=== PATIENT | female | born 1950 | race Caucasian/White ===

== ENCOUNTER 2018-01-01 06:43 | Inpatient (IN) | payer OTHER, MEDICARE ==
[~2018-01-01] VITALS: Ht 157.5 cm; Wt 64.0 kg
[2018-01-01] MEDS ORDERED: BUPIVACAINE/EPINEPHRINE 0.25% 50 ML VIAL ONE (06:59)
[2018-01-01] MEDS ORDERED: GENTAMICIN SULFATE 80 MG/2 ML VIAL ONE (07:00)
[2018-01-01] MEDS ORDERED: BUPIVACAINE LIPOSOME PF 1.3% 20 ML VIAL ONE (07:42)
[2018-01-01] MEDS ORDERED: MIDAZOLAM HCL 2 MG/2 ML VIAL ONE (07:42)
[2018-01-01] MEDS ORDERED: LISI-515 PO (07:48)
[2018-01-01] MEDS ORDERED: LORA1TAB12 PO (07:51)
[2018-01-01] MEDS ORDERED: CYCL5TAB PO (07:51)
[2018-01-01] MEDS ORDERED: VANCOMYCIN HCL 1000 MG VIAL ONE (07:53)
[2018-01-01] MEDS ORDERED: SODIUM CHLOR 0.9% 250 ML INJ 250 ML ONE (07:54)
[2018-01-01] MEDS ORDERED: ceFAZolin 2 GM PREMIX 50 ML IV SCH (08:00)
[2018-01-01] MEDS ORDERED: VANCOMYCIN 1000 MG/NS 250 ML (for <70 kg) IV SCH ×2 (08:00)
[2018-01-01] MEDS ORDERED: SODIUM CHLORIDE 0.9% IV SCH (08:00)
[2018-01-01] MEDS ORDERED: TRANEXAMIC ACID IV SCH (08:00)
[2018-01-01] MEDS ORDERED: CHLORHEXIDINE GLUCONATE 4% SOLN 120 ML BTL TOPICAL SCH (08:00)
[2018-01-01] MEDS ORDERED: EXPAREL PERI-ARTICULAR INJECTION (TOTAL VOL. 60 ML) P-ARTICULR SCH ×2 (08:00)
[2018-01-01] MEDS ORDERED: CHLORHEXIDINE GLUCONATE 2 % 1 PACK (2 CLOTHS) TOPICAL PRN (08:30)
[2018-01-01] MEDS ORDERED: SODIUM CHLORID 0.9% 500 ML IV PRN (08:30)
[2018-01-01] MEDS ORDERED: INSULIN HUMAN REGULAR 1,000 UNITS/10 ML VIAL SQ PRN (08:30)
[2018-01-01] MEDS ORDERED: LACTATED RINGER'S 1000 ML IV PRN (08:30)
[2018-01-01] MEDS ORDERED: POVIDONE IODINE 5% (ANTISEPSIS KIT) 4 APPLICATIONS EACH NARE PRN (08:30)
[2018-01-01] MEDS ORDERED: METOPROLOL TARTRATE 25 MG TAB PO PRN (08:30)
[2018-01-01] MEDS ORDERED: ACETAMINOPHEN 1000 MG/100 ML 100 ML IV ONE (08:32)
[2018-01-01 08:34] VITALS: PULSE 71
[2018-01-01] MEDS ORDERED: ceFAZolin INJ 1,000 MG VIAL ONE (08:59)
[2018-01-01] MEDS ORDERED: SODIUM CHLORIDE 0.9% INJ 100 ML ONE (10:33)
[2018-01-01] MEDS ORDERED: CPMMACHINE (10:50)
[2018-01-01] MEDS ORDERED: WALKER WHEELS/F1 MIS (10:51)
[2018-01-01] MEDS ORDERED: COMMODE 3-IN-11 MIS (10:52)
--- NOTE | 2018-01-01 10:54 | HHI.FF ---
Face to Face Verification Diagnosis: (1) Osteoarthritis of left knee Physical Therapy Gait training, Safety evaluation, Transfer training, bed to chair Knee: Total knee, Protocol: Left, Full weight bearing Canvas Knee Splint: When in bed & 2 pillows btw thighs Left LE Weight Bearing: WB as tolerated Additional Instructions PT 3-4 days/wk for 2 weeks. WBAT Left LE. TKA protocol. CPM bid as tolerated , 0-60 with goal of 100 flexion. CKS when in bed for 3-4 weeks. Gait training. Nursing RN Days per Week: 2 x Week(s): 1 Nursing: Other Dressing Changes: Do not change dressing Additional Instructions Vitals assessment. Dressing assessment - do not change unless saturated or erythema. I have seen patient Ghazal Rosales on 01/01/18. My clinical findings support the need for the requested home health care services because: Limited ability to care for self High risk of falls I certify that my clinical findings support that this patient is homebound because: Post-op weakness Unsteady gait/balance Denise Pitts Jan 01, 2018 10:54
--- NOTE | 2018-01-01 10:57 | HHI.DS ---
Discharge Summary Admission Date Jan 01, 2018 at 06:43 Discharge Date: Jan 03, 2018 Admitting Diagnosis see below Diagnosis: (1) Osteoarthritis of left knee Diagnosis: Principal ICD Codes: M17.12 - Unilateral primary osteoarthritis, left knee Procedures Left total knee arthroplasty Brief History This is a 67 year old female patient with an extended multi-year history of left knee pain. She underwent arthroscopic surgery in 1983 and again in 1989. She did well for a period of time but began having increased pain with weightbearing. She used OTC tylenol. She sought out medical evaluation. Xrays were performed showing advancing arthritis of her left knee. She was given a prescription of celebrex of which she took for many years but had to discontinue due to GI side effects. She utilized an OTC knee brace. Surgical treatment was eventually recommended when her function continued to decline. She agreed to left total knee arthroplasty and now presents for the above. Hospital Course Surgical treatment was performed on the day of admission without complication. She recovered well in PACU and was transferred to the orthopaedic floor. Pain was controlled with IV and oral medications. DVT prophylaxis was initiated pod# 1 with ASA 81mg. She was compliant with physical therapy and all restrictions including use of her CPM. After 2 days she was found to be stable and discharged home with home health care. She was educated to continue applying ice to the operative site, to pursue a high fiber diet and to continue her physical therapy. She was given prescriptions of ASA 81mg and Percocet 5mg. Pt Condition on Discharge: Stable Discharge Disposition: Disch w/ Home Health Serv Discharge Instructions Diet Instructions: High Protein Diet Activities You Can Perform: Weight Bearing as Aly Activities to Avoid: Strenuous Activity Additional Activity Instruc.: TKA protocol New Medications: Commode 3-in-1 (Commode 3-in-1) 1 Mis Mis EA .XX DIRECTED, #1 0 Refills CPM-Continuous Passive Motion Machine (CPM-Continuous Passive Motion Machine) 1 Ea Device EA .XX DIRECTED, #1 0 Refills Walker with Front Wheels (Walker with Front Wheels) 1 Mis Mis EA .XX DIRECTED, #[address] (Aspirin DR) 81 Mg Tabdr 81 MG PO BID for Prevent Blood Clot, #60 TAB Oxycodone HCl/Acetaminophen (Oxycodone-Acetaminophen 5-325) 5 Mg-325 Mg Tablet 1 TAB PO Q4H PRN for pain, #42 TAB Continued Medications: Cyclobenzaprine (Flexeril) 5 Mg Tab 5 MG PO TID for Muscle Spasm, #90 TAB 0 Refills Lisinopril (Lisinopril) 20 Mg Tab 20 MG PO BID, #30 TAB 0 Refills Lorazepam (Lorazepam) 1 Mg Tab 1 MG PO DAILY PRN for ANXIETY, TAB 0 Refills Denise Pitts Jan 01, 2018 10:57
[2018-01-01] MEDS ORDERED: Post-op Orders (for Pharmacy) XX ONE (11:15)
[2018-01-01] MEDS ORDERED: oxyCODONE/ACETAMINOPHEN 5 MG/325 MG TAB PO PRN (11:15)
[2018-01-01] MEDS ORDERED: MORPHINE SULFATE 8 MG/ML INJ IM PRN (11:15)
[2018-01-01] MEDS ORDERED: NALOXONE HCL 0.4 MG/ML AMP IV PUSH PRN (11:15)
[2018-01-01] MEDS ORDERED: ASPIRIN EC 81 MG TABEC PO ONE (11:15)
[2018-01-01] MEDS ORDERED: TEMAZEPAM 15 MG CAP PO PRN (11:15)
[2018-01-01] MEDS ORDERED: LORazepam 1 MG TAB PO PRN (11:15)
--- NOTE | 2018-01-01 11:20 | PD.OP ---
cc: Mikhail Hart MD Operative Report Date of Surgery: Jan 01, 2018 Preoperative Diagnosis: Osteoarthritis left knee Postoperative Diagnosis: Same Procedure: Left total knee replacement arthroplasty Anesthesia: Gen. Surgeon: Mikhail Hart Computer Technology Instructor(s): MELA Ann Operation and Findings: EBL: 50 cc INDICATION: This patient presents with long-standing arthritis of the knee. Attachment record documents conservative measures. The patient now presents for surgical treatment. NOTE: Sharda Ann PA-C was present for the entire surgical procedure as my multimedia production assistant. In my medical opinion her skill and care was necessary for proper management of this patient. TOURNIQUET TIME: T8 minutes COMPANY: [employer] FEMUR: Size 5, posterior stabilized TIBIA: Size, fixed bearing PATELLA: 129 mm POLYETHYLENE INSERT: 10 mm PROCEDURE: This patient was brought the operating room and anesthetized in the supine position. The patient was positioned supine on the table. The tourniquet was placed about the thigh, and the leg was scrubbed with alcohol followed by Hibiclens followed by ChloraPrep and draped sterilely. A timeout was done, and antibiotics were given. After exsanguination the tourniquet was inflated to 250 mmHg. An anterior incision was made and a median parapatellar arthrotomy was performed. The patella was released laterally and subluxed allowing freehand cut of the patella which was then sized. A metal cap was placed over the exposed patellar surface for protection. A navy fighter pilot hole was placed in the distal femur allowing a 4 valgus cut removing 10 mm from the distal femur. We used 2 of external rotation of the femoral component based on epicondylar axis. Anterior posterior and chamfer cuts were made. The posterior stabilize osteotomy was made. The attention was directed to the tibia. Retractors were positioned. The external alignment guide was used allowing the lateral tibia to be used as referencing guide and cut utilizing an oscillating saw taking care to avoid any injury to the surrounding soft tissues. This was sized properly. Trial reduction showed that the insert fit nicely. The patient had range of motion extension 0 flexion a 130. A medial release was not necessary. The bony surfaces prepared. On the back table 2 packets of methylmethacrylate were mixed. The components were cemented. Excess cement was removed. The tourniquet let down and hemostasis was controlled. The final plastic insert was inserted. Range of motion was the same as previously noted. A drain was brought through a separate stab incision. The arthrotomy was repaired with interrupted #1 Vicryl suture, subcutaneous tissue 2-0 Vicryl suture and skin with metallic oh A sterile dressing was applied. Sponge counts, needle counts and instrument counts were all correct. The patient tolerated procedure well and was taken to recovery in satisfactory condition. FINDINGS: There was severe osteoarthritis of the knee with a varus deformity. Final fit was excellent. Along the medial femoral condyle in the region of the box cut, there was a slight crack in that region that could be seen which was not unstable. Solution was excellent. There was no complication. Mikhail Hart MD Jan 01, 2018 11:20
[2018-01-01] MEDS ORDERED: OXYC1TAB63 PO (11:22)
[2018-01-01] MEDS ORDERED: ECASA81 PO (11:22)
[2018-01-01] MEDS ORDERED: DO NOT ADM ANY ANTICOAGULANT DRUGS PRN (11:42)
[2018-01-01] MEDS ORDERED: *MEPERIDINE 25 MG INJ VIAL PERIprocedural Use ONLY ONE (11:51)
[2018-01-01] MEDS ORDERED: PROPOFOL 200 MG/20 ML AMP IV ONE (12:00)
[2018-01-01] MEDS ORDERED: PHENYLEPH/NS 1000 MCG/10 ML SYR IV ONE (12:00)
[2018-01-01] MEDS ORDERED: LIDOCAINE HCL 1% PF 5 ML SYRINGE OTHER ONE (12:00)
[2018-01-01] MEDS ORDERED: GLYCOPYRROLATE 1 MG/5 ML SYRINGE IV PUSH ONE (12:00)
[2018-01-01] MEDS ORDERED: NEOSTIGMINE 5 MG/5 ML SYRINGE IV PUSH ONE (12:00)
[2018-01-01] MEDS ORDERED: ROCURONIUM INJ 50 MG/5 ML SYRINGE IV PUSH ONE (12:00)
[2018-01-01] MEDS ORDERED: DEXAMETHASONE SOD PHOS 4 MG/ML VIAL IV ONE (12:00)
[2018-01-01] MEDS ORDERED: PILL SPLITTER OTHER PRN (12:00)
[2018-01-01] MEDS ORDERED: ePHEDrine/NS 25 MG/5 ML SYRINGE IV ONE (12:00)
[2018-01-01] MEDS ORDERED: ONDANSETRON HCL 4 MG/2 ML VIAL IV ONE (12:00)
[2018-01-01] MEDS: LACTATED RINGER'S 1000 ML INJ 1,000 ML IV SCH ×2 (12:10→22:00)
--- NOTE | 2018-01-01 12:45 | RADRPT ---
EXAM DATE/TIME: 01/01/2018 12:02 [facility] COMPARISON: No previous studies available for comparison. INDICATIONS : Post op left knee replacement MEDICAL HISTORY : None. SURGICAL HISTORY : left knee replaced ENCOUNTER: Initial ACUITY: 1 day PAIN SCORE: 10/10 LOCATION: Left knee FINDINGS: There is total knee prosthesis in place. The components appear well-placed. Skin oh are seen ant eriorly. Air is seen within the soft tissues and within the knee joint. This is not an unexpected fin ding following surgery. CONCLUSION: Successful placement of a left total knee prosthesis. Deshawn Miranda MD on January 01, 2018 at 12:42 Board Certified Radiologist. This report was verified electronically.
[2018-01-01] MEDS: CYCLOBENZAPRINE HCL 10 MG TAB PO SCH ×2 (13:00→18:07)
[2018-01-01] MEDS ORDERED: *morphine SULFATE 4 MG/ML PERIprocedure ONLY ONE (13:10)
[2018-01-01 14:00] VITALS: BP 122/57; PULSE 72; RESP 18; TEMP 96.8; O2SAT 99
[2018-01-01 16:00] VITALS: BP 92/54; PULSE 87; RESP 18; TEMP 99; O2SAT 95
[2018-01-01] MEDS: oxyCODONE/ACETAMINOPHEN 5 MG/325 MG TAB PO PRN (18:07)
[2018-01-01 20:00] VITALS: BP 118/54; PULSE 76; RESP 17; TEMP 97.4; O2SAT 99
[2018-01-01] MEDS: ASPIRIN EC 81 MG TABEC PO SCH (20:13)
[2018-01-01] MEDS: LISINOPRIL 20 MG TAB PO SCH (20:13)
[2018-01-01 23:30] VITALS: BP 116/57; PULSE 77; RESP 18; TEMP 98.4; O2SAT 96
[2018-01-02] MEDS: oxyCODONE/ACETAMINOPHEN 5 MG/325 MG TAB PO PRN ×5 (00:10→18:35)
[2018-01-02 04:00] VITALS: BP 124/62; PULSE 67; RESP 18; TEMP 97.6; O2SAT 97
[2018-01-02 06:56] LABS: HEMATOCRIT 35.4 % (35.0-46.0); HEMOGLOBIN 11.7 GM/DL (11.6-15.3)
[2018-01-02 07:38] VITALS: BP 103/60; PULSE 79; RESP 18; TEMP 99; O2SAT 97
[2018-01-02] MEDS: CYCLOBENZAPRINE HCL 10 MG TAB PO SCH ×3 (08:37→18:13)
[2018-01-02] MEDS: NICOTINE 7 MG/24 HR PATCH T-DERMAL SCH (08:37)
[2018-01-02] MEDS: LISINOPRIL 20 MG TAB PO SCH ×2 (08:39→21:32)
[2018-01-02] MEDS: ASPIRIN EC 81 MG TABEC PO SCH ×2 (08:43→21:32)
[2018-01-02] MEDS: REMOVE OLD PATCH T-DERMAL SCH (08:43)
[2018-01-02 09:20] VITALS: O2SAT 98
[2018-01-02] MEDS ORDERED: diphenhydrAMINE HCL 25 MG CAP PO PRN (10:30)
[2018-01-02 12:00] VITALS: BP 130/57; PULSE 76; RESP 17; TEMP 97.9; O2SAT 96
[2018-01-02] MEDS: LACTATED RINGER'S 1000 ML INJ 1,000 ML IV SCH (12:15)
--- NOTE | 2018-01-02 12:56 | HHI.DCPOC ---
Discharge Care Plan Diagnosis: (1) Osteoarthritis of left knee Your Health Problems Are: Difficulty with ADL Incision/Drains Swelling Goals to Promote Your Health * To prevent worsening of your condition and complications * To maintain your health at the optimal level Directions to Meet Your Goals Take your medications as prescribed Follow your dietary instruction Follow activity as directed Keep your appointments as scheduled Take your immunizations and boosters as scheduled If your symptoms worsen call your PCP, if no PCP go to Urgent Care Center or Emergency Room Smoking is Dangerous to Your Health. Avoid second hand smoke Call the 24-hour hour crisis hotline for domestic abuse at Denise Pitts Jan 02, 2018 12:56
--- NOTE | 2018-01-02 12:59 | PD.ORT.PN ---
Subjective Subjective Remarks States she was fairly comfortable until the block wore off. She has moderate to substantial waxing and waning knee pain. She has not had a bowel movement in 3 days. She is urinating readily. Appetite is returning. Questions about discharge. She has family coming in town to help her. She denies any new CP or SOB. Objective Vitals Vital Signs Date Time Temp Pulse Resp B/P (MAP) Pulse Ox O2 Delivery O2 Flow Rate FiO2 01/02/18 09:20 98 21 01/02/18 07:38 99.0 79 18 103/60 (74) 97 01/02/18 04:00 97.6 67 18 124/62 (82) 97 01/01/18 23:30 98.4 77 18 116/57 (76) 96 01/01/18 20:00 97.4 76 17 118/54 (75) 99 01/01/18 14:00 96.8 72 18 122/57 (78) 99 01/01/18 13:45 97.5 71 17 121/60 (80) 95 Nasal Cannula 2 01/01/18 13:30 72 16 123/60 (81) 94 01/01/18 13:15 72 16 123/60 (81) 99 01/01/18 13:00 70 14 122/60 (80) 99 I/O 01/01/18 01/01/18 01/01/18 01/02/18 01/02/18 01/02/18 07:00 15:00 23:00 07:00 15:00 23:00 Intake Total 800 ml 1004 ml 1456 ml Output Total 50 ml 725 ml Balance 750 ml 1004 ml 731 ml Intake Oral 840 ml IV Total 800 ml 1004 ml 616 ml Output Urine Total 725 ml Estimated Blood Loss 50 ml Result Diagram: 01/02/18 0631 Procedures Left total knee arthroplasty Objective Remarks Laying in bed NAD Not wearing knee splint LLE Knee dressing c/d/i, no new drainage, mild swelling, no erythema +motor at, +sens, +nvi Neg homans Assessment & Plan Ortho Post Op Day #: 1 Problem List: (1) Osteoarthritis of left knee ICD Codes: M17.12 - Unilateral primary osteoarthritis, left knee Qualifiers: Qualified Codes: M17.12 - Unilateral primary osteoarthritis, left knee Assessment and Plan pod#1 s/p L TKA Ortho stable. Pain only moderately controlled. Percocet for pain. She also takes a muscle relaxer. Dulcolax for constipation. ASA 81mg for dvt prophylaxis PT - WBAT LLE. CPM bid. CKS when in bed. Ice operative site bid. D/C planning, [facility] tomorrow. F2F written. Denise Pitts Jan 02, 2018 12:59
[2018-01-02] MEDS ORDERED: BISACODYL EC 5 MG TABEC PO PRN (13:00)
[2018-01-02 17:37] VITALS: BP 143/63; PULSE 85; RESP 17; TEMP 98; O2SAT 95
[2018-01-02 19:50] VITALS: BP 120/58; PULSE 93; RESP 18; TEMP 97.7; O2SAT 92
[2018-01-03] VITALS: BP 131/105; PULSE 93; RESP 18; TEMP 97.8; O2SAT 99
[2018-01-03] MEDS: LACTATED RINGER'S 1000 ML INJ 1,000 ML IV SCH (00:45)
[2018-01-03] MEDS: oxyCODONE/ACETAMINOPHEN 5 MG/325 MG TAB PO PRN ×2 (00:55→09:10)
[2018-01-03 08:00] VITALS: BP 111/53; PULSE 94; RESP 17; TEMP 98.5; O2SAT 94
--- NOTE | 2018-01-03 08:50 | PD.ORT.PN ---
Subjective Subjective Remarks No interval complaints from last night though patient states she feels 'her questions about discharge have not been answered'. She is unsure about her daily copay. Questions about discharge. She has family coming in town to help her. She denies any new CP or SOB. Objective Vitals Vital Signs Date Time Temp Pulse Resp B/P (MAP) Pulse Ox O2 Delivery O2 Flow Rate FiO2 01/03/18 08:00 98.5 94 17 111/53 (72) 94 01/03/18 00:00 97.8 93 18 131/105 (114) 99 01/02/18 19:50 97.7 93 18 120/58 (78) 92 01/02/18 17:37 98.0 85 17 143/63 (89) 95 01/02/18 12:00 97.9 76 17 130/57 (81) 96 01/02/18 09:20 98 21 I/O 01/02/18 01/02/18 01/02/18 01/03/18 01/03/18 01/03/18 07:00 15:00 23:00 07:00 15:00 23:00 Intake Total 1456 ml 480 ml Output Total 725 ml Balance 731 ml 480 ml Intake Oral 840 ml 480 ml IV Total 616 ml Output Urine Total 725 ml # Voids 4 # Bowel Movements 0 Result Diagram: 01/02/18 0631 Procedures Left total knee arthroplasty Objective Remarks Laying in bed NAD Not wearing knee splint LLE Knee dressing c/d/i, no new drainage, mild swelling, no erythema +motor at, +sens, +nvi Neg homans Assessment & Plan Ortho Post Op Day #: 2 Problem List: (1) Osteoarthritis of left knee ICD Codes: M17.12 - Unilateral primary osteoarthritis, left knee Qualifiers: Qualified Codes: M17.12 - Unilateral primary osteoarthritis, left knee Assessment and Plan pod#2 s/p L TKA Ortho stable. Pain moderately controlled. Ok to d/c home w [facility] today after PT. Case management to discuss copay with patient. Percocet for pain. She also takes a muscle relaxer. Dulcolax for constipation. ASA 81mg for dvt prophylaxis PT - WBAT LLE. CPM bid. CKS when in bed. Ice operative site bid. F/U in 2 weeks as scheduled. F2F written. Denise Pitts Jan 03, 2018 08:50
[2018-01-03] MEDS: REMOVE OLD PATCH T-DERMAL SCH (09:00)
[2018-01-03] MEDS: CYCLOBENZAPRINE HCL 10 MG TAB PO SCH (09:09)
[2018-01-03] MEDS: LISINOPRIL 20 MG TAB PO SCH (09:09)
[2018-01-03] MEDS: ASPIRIN EC 81 MG TABEC PO SCH (09:09)
[2018-01-03] MEDS: NICOTINE 7 MG/24 HR PATCH T-DERMAL SCH (09:12)
[2018-01-03 12:00] VITALS: BP 129/95; PULSE 87; RESP 17; TEMP 98.7; O2SAT 95
== END 2018-01-03 14:16 | disposition home health service (06) | DRG 470 ==
LOC: HSDI 06:43 → N06B 14:17
PROVIDERS: ADMIT Orthopaedic Surgery Orthopaedic Surgery of the Spine; ATTEND Orthopaedic Surgery Orthopaedic Surgery of the Spine
PROC: 3E0T3BZ Introduction of Anesthetic Agent into Peripheral Nerves and Plexi, Percutaneous Approach (ICD-10-PCS; 2018-01-01)
PROC: 0SRD0J9 Replacement of Left Knee Joint with Synthetic Substitute, Cemented, Open Approach (ICD-10-PCS; principal; 2018-01-01 08:57)
DX: M17.12 Unilateral primary osteoarthritis, left knee (principal); I10 Essential (primary) hypertension; K59.00 Constipation, unspecified; M21.162 Varus deformity, not elsewhere classified, left knee; G47.30 Sleep apnea, unspecified; F17.200 Nicotine dependence, unspecified, uncomplicated; Z91.19 Patient's noncompliance with other medical treatment and regimen
CPT/HCPCS: 73560; 85014; 85018; 86850; 86900; 86901; 86920; 94150; C1776; C9290; J0131; J0690; J1100; J1580; J2175; J2250; J2270; J2370; J2405; J2710; J3010; J3370; J7050; J7120; L1830